=== PATIENT | female | born 2005 | race Asian ===

== ENCOUNTER 2024-02-04 14:49 | Emergency (ER) | payer OTHER, SELFPAY ==
[2024-02-04 14:51] VITALS: BP 131/79; PULSE 85; RESP 19; TEMP 36.2; O2SAT 100; BMI 19.7
--- NOTE | 2024-02-04 15:33 | EKG12_ITS ---
Test Reason : DIZZY Blood Pressure : / mmHG Vent. Rate : 073 BPM Atrial Rate : 073 BPM P-R Int : 132 ms QRS Dur : 074 ms QT Int : 352 ms P-R-T Axes : 077 080 066 degrees QTc Int : 387 ms Sinus rhythm with marked sinus arrhythmia Early repolarization Otherwise normal ECG Confirmed by RANCHO HODGES, JOSE ([id number]), video editor TANO ARNDT ([id number]) on 02/06/2024 9:59:47 AM Referred By: Confirmed By:JOSE VICKERS MD
--- NOTE | 2024-02-04 15:34 | EX.ED.DYSGE1 ---
HPI History of Present Illness Chief Complaint: Dizziness Detail of Chief Complaint: Syncope and collapse Informant: patient Onset/Context/Timing Onset: Today and Hours Context: Sudden Onset Timing: Intermittent Quality: Sitting in class became warm nauseous and collapsed Location: During lecture Current Severity: Gone Maximum Severity: Severe Worsened by: Nothing specific Relieved by: Not applicable Associated Symptoms Associated Symptoms: HPI Narrative Narrative: Patient is a 18-year-old who identifies as binary on control pill who is not sexually active presents from the [facility] after a syncopal episode. This occurred during class. She felt warm, became nauseous vision became tunneled and she passed out. Reportedly there is no abnormal motor activity. She believes she was pale. She denies chest pain or shortness of breath. She denies abdominal pain. She denies black or maroon-colored stool. Prior similar symptoms: No Recent Illness/Hospitalization: No PFSH [facility] Medical History High cholesterol ADHD Home Medications ?Medication ?Instructions ?Recorded ?Last Taken ?Type atorvastatin 10 mg tablet 10 mg PO DAILY 02/04/24 Unknown History Allergy/AdvReac Type Severity Reaction Status Date / Time bee pollen Allergy Intermediate Fever and Verified 02/04/24 14:55 skin rash Surgical History no surgical history no surgical history Social History Smoking Status: Never smoker ROS ROS ED Constitutional Constitutional ED: Denies chills, fever(s), subjective or sweats Eyes Eyes: Reports change in vision bilateral ENT ENT ED: Denies ear pain or rhinorrhea Cardiovascular Cardiovascular: Denies chest pain or palpitations Respiratory/Chest Respiratory/Chest: Denies cough, dyspnea or dyspnea on exertion Gastrointestinal Gastrointestinal: Reports nausea; Denies abdominal pain, diarrhea, melena or vomiting Musculoskeletal Musculoskeletal: Denies back pain or neck pain Hematologic/Lymphatic Hematologic/Lymphatic: Reports systems reviewed and no addt'l complaints, except as documented EXAM Physical Exam Const Vital Signs: 02/04/24 14:51 02/04/24 16:00 02/04/24 16:51 Temperature 97.2 F L Temperature Source Temporal Pulse Rate 85 83 Pulse Rate [Lying] 73 Pulse Rate [Sitting (for 1 minute prior to obtaining)] 76 Pulse Rate [Standing (for 1 minute prior to obtaining)] 104 H Respiratory Rate 19 H 20 H Blood Pressure 131/79 H 123/76 H Blood Pressure [Lying] 115/76 Blood Pressure [Sitting (for 1 minute prior to obtaining)] 114/66 Blood Pressure [Standing (for 1 minute prior to obtaining)] 105/69 Blood Pressure Mean 96 91 Blood Pressure Mean [Lying] 89 Blood Pressure Mean [Sitting (for 1 minute prior to obtaining)] 82 Blood Pressure Mean [Standing (for 1 minute prior to obtaining)] 81 Pulse Ox 100 100 Oxygen Delivery Method Room Air Room Air 02/04/24 17:46 Temperature Temperature Source Pulse Rate Pulse Rate [Lying] 80 Pulse Rate [Sitting (for 1 minute prior to obtaining)] 78 Pulse Rate [Standing (for 1 minute prior to obtaining)] 79 Respiratory Rate Blood Pressure Blood Pressure [Lying] 121/84 H Blood Pressure [Sitting (for 1 minute prior to obtaining)] 117/78 Blood Pressure [Standing (for 1 minute prior to obtaining)] 125/88 H Blood Pressure Mean Blood Pressure Mean [Lying] 96 Blood Pressure Mean [Sitting (for 1 minute prior to obtaining)] 91 Blood Pressure Mean [Standing (for 1 minute prior to obtaining)] 100 Pulse Ox Oxygen Delivery Method Positive well nourished and well developed General Appearance ED: well developed and NAD; Negative for cyanotic, diaphoretic or pallor HEENT Reports moist mucous membranes HEENT Narrative: Atraumatic normocephalic. Ears normal. Nares patent. Mucosa moist. Eyes PERRL General Eye ED: Negative for pale conjunctiva or scleral icterus Neck no lymphadenopathy, supple and no JVD Chest Wall inspection of chest normal and palpation of chest normal Resp normal respiratory effort and clear to auscultation bilaterally Cardio regular rate, regular rhythm, S1 normal heart sound, S2 normal heart sound and no murmurs GI normal to inspection, nondistended, normoactive bowel sounds, non-tender, non-distended and no masses; Negative for hepatosplenomegaly Extremity normal to inspection Neuro oriented x3 and CN's II-XII intact bilaterally Sensorium / Orientation: alert Skin no rashes or lesions noted, no wounds and skin turgor normal General Skin Exam: Negative for jaundice or pallor MDM MDM MDM Narrative Medical decision making narrative: Functional diagnosis is vasovagal episode versus other causes of syncope to be unknown, hypovolemia. Doubt and she is on control pills with states she is not sexually active. Clinically she is not anemic. Will obtain orthostatic vital signs and EKG. Patient was placed on monitor to assess for dysrhythmia. EKG Initial EKG: Attestation: I personally reviewed and interpreted this EKG as follows: Interpretation: Sinus Rhythm (Rate is 66. There is a premature atrial beat noted. WI interval is 186 ms. Cures duration 86 ms. QT duration 462 ms. [place] to the left. There is artifact in the inferior leads which the computer is reading is infarct of indeterminate age.) Treatment and Re-Evaluation :: Since orthostatic vital signs were positive she received 1 L normal saline. She has walked to the restroom since. She was informed of her results. Repeat orthostatic vital signs were negative. Discharge Plan Triage Chief Complaint: Dizziness ED Provider: Stiven Herman Dx/Rx/DC Orders Clinical Impression: Syncope and collapse, Orthostatic hypotension Instructions: ED Hypotension, Orthostatic Prescriptions: No Action atorvastatin 10 mg tablet 10 mg PO DAILY Primary Care Provider: NICOLAS GREY Referrals: [facility] [Group of Physicians] - As Needed NOT,DEFINED [Non-Staff] - Print Language: [place]ian Disposition Disposition: Home, Self Care
[2024-02-04 16:00] VITALS: BP 105/69; BP 114/66; BP 115/76; PULSE 104; PULSE 73; PULSE 76
[2024-02-04] MEDS: 0.9% Normal Saline (1000mL) 1,000 ML 999 ML IV (16:22)
[2024-02-04 16:51] VITALS: BP 123/76; PULSE 83; RESP 20; O2SAT 100
[2024-02-04 17:46] VITALS: BP 117/78; BP 121/84; BP 125/88; PULSE 78; PULSE 79; PULSE 80
[2024-02-04 18:00] VITALS: BP 122/71; PULSE 71; RESP 16; O2SAT 99
== END 2024-02-04 18:08 | disposition home or self-care (01) ==
PROVIDERS: Emergency Provider Emergency Medicine; Visit Provider Emergency Medicine
DX: I95.1 Orthostatic hypotension (principal); E78.00 Pure hypercholesterolemia, unspecified; Z79.899 Other long term (current) drug therapy
CPT/HCPCS: 93005; 96360; 99285; J7030; A4216